=== PATIENT | male | born 1970 | race African-American/Black ===

== ENCOUNTER → 2017-04-17 | Outpatient (CLI) | payer OTHER ==
[~2017-04-17] MED LIST: NOMEDS XX; PREDNISONE 20MG20 MG PO
--- NOTE | 2017-04-18 05:49 | RADIOLOGY REPORT PS360 ---
CHEST(2 VIEWS-NOT PORTABLE) HISTORY: COUGH ORDERING PHYSICIAN: oCnner Hill MD PATIENT AGE: 47 years COMPARISON: None available FINDINGS: The cardiomediastinal silhouette and pulmonary vascularity are within normal limits. Slight asymmetric increased markings are present in the left mid to lower lung zone suggesting patchy infiltrate. No effusions. No acute bony anomalies. IMPRESSION: Left infrahilar patchy infiltrate versus summation artifact from overlying soft tissue.
--- NOTE | 2017-04-18 05:49 | RADIOLOGY REPORT PS360 ---
CHEST(2 VIEWS-NOT PORTABLE) HISTORY: COUGH ORDERING PHYSICIAN: Conner Hill MD PATIENT AGE: 47 years COMPARISON: None available FINDINGS: The cardiomediastinal silhouette and pulmonary vascularity are within normal limits. Slight asymmetric increased markings are present in the left mid to lower lung zone suggesting patchy infiltrate. No effusions. No acute bony anomalies. IMPRESSION: Left infrahilar patchy infiltrate versus summation artifact from overlying soft tissue.
== END ==
LOC: RAD 18:37
DX: R05 Cough (principal)